=== PATIENT | male | born 1955 | race African-American/Black ===

== ENCOUNTER → 2017-02-12 | Day surgery (SDC) | payer OTHER ==
[~2017-02-12] MED LIST: AMIO200T PO; CHOL500010 PO; COLC0.6T66 PO; COR6 PO; FURO20TA4 PO; GABA-531 PO; GLIM2TAB2 PO; HEPARIN SODIUM 1,000 UNIT/1ML VIAL IV ONE; HYDR-3927 PO; INSU3INS6 SQ; LOSA1TAB37 PO; METF500T4 PO; NICARDIPINE 100MCG/ML 10ML VIAL (CATH LAB) IV ONE; NITROGLYCERIN 50MCG/ML 10ML VIAL (CATH LAB) IV ONE; OMEP20TA80 PO; POTA8TAB4 PO; SACU1TAB7 PO; SIMV20TA6 PO; SITA25TA3 PO; VIAG100 PO; WARF5TAB73 PO; [UNRECOGNIZED DRUG - CODE] PO
== END | disposition home or self-care (01) ==
LOC: CCL 09:38
PROVIDERS: ATTEND Specialist
DX: I25.798 Atherosclerosis of other coronary artery bypass graft(s) with other forms of angina pectoris (principal); Z95.1 Presence of aortocoronary bypass graft; I25.2 Old myocardial infarction; E78.5 Hyperlipidemia, unspecified; I50.22 Chronic systolic (congestive) heart failure; Z79.4 Long term (current) use of insulin; E11.9 Type 2 diabetes mellitus without complications; E66.09 Other obesity due to excess calories; I48.2 Chronic atrial fibrillation
CPT/HCPCS: 82962; 93459; C1769; C1887; C1893; J1644; J3490